=== PATIENT | female | born 1980 | race American Indian/Alaskan Native ===

== ENCOUNTER 2018-06-02 10:38 | Emergency (ER) | payer MEDICAID ==
[2018-06-02 10:56] VITALS: BMI 30.6
[2018-06-02 10:58] VITALS: BP 132/85; PULSE 88; RESP 18; TEMP 99; O2SAT 96
[2018-06-02] MEDS ORDERED: Naproxen 550 mg Tab PO STA (11:21)
--- NOTE | 2018-06-02 11:23 | C.PDOC ---
History Of Present Illness 38 y/o female presents to the ER complaining of left shoulder pain which has been present for the past 5 days. Patient states that she just woke up with the pain today. She notes that she applied Icy Hot and ice to the area without relief.Denies having history of similar episodes, CP, SOB, changes in sensation , weakness and trauma. Time Seen by Provider: 06/02/18 11:11 Chief Complaint (Nursing): Upper Extremity Problem/Injury History Per: Patient History/Exam Limitations: no limitations Onset/Duration Of Symptoms: Days Current Symptoms Are (Timing): Still Present Past Medical History Reviewed: Historical Data, Nursing Documentation, Vital Signs Vital Signs: Last Vital Signs Temp 99.0 F 06/02/18 10:56 Pulse 88 06/02/18 10:56 Resp 18 06/02/18 11:50 BP 132/85 06/02/18 10:56 Pulse Ox 96 06/02/18 12:16 - Medical History PMH: No Chronic Diseases Other Surgeries: Hx of surgeries Family History: States: No Known Family Hx - Social History Hx Alcohol Use: No Hx Substance Use: No - Immunization History Hx Tetanus Toxoid Vaccination: No Hx Influenza Vaccination: No Hx Pneumococcal Vaccination: No Review Of Systems Except As Marked, All Systems Reviewed And Found Negative. Cardiovascular: Negative for: Chest Pain Respiratory: Negative for: Shortness of Breath Musculoskeletal: Positive for: Shoulder Pain (left shoulder pain) Neurological: Negative for: Weakness, Numbness Physical Exam - Physical Exam Appears: Non-toxic, No Acute Distress Skin: Normal Color, Warm, Dry Head: Atraumatic, Normacephalic Eye(s): bilateral: Normal Inspection, EOMI Nose: Normal Oral Mucosa: Moist Neck: Normal ROM, Supple Chest: Symmetrical Cardiovascular: Rhythm Regular Respiratory: Normal Breath Sounds, No Accessory Muscle Use Extremity: No Normal ROM (decreased ROM in left shoulder secondary to pain), Tenderness (tenderness to anterior left shoulder), Capillary Refill (<2 sec) Extremity: Bilateral: Normal Color And Temperature Pulses: Left Radial: Normal, Right Radial: Normal Neurological/Psych: Oriented x3, Normal Speech, Normal Motor, Normal Sensation ED Course And Treatment O2 Sat by Pulse Oximetry: 96 (RA) Pulse Ox Interpretation: Normal - Other Rad X-Ray- Left Shoulder X-Ray: Viewed By Me, Read By Radiologist Interpretation: PROCEDURE: Radiographs of the Left Shoulder. HISTORY: pain. COMPARISON: None available. FINDINGS: BONES: No acute displaced fracture. The distal clavicle and underlying ribs appear intact. JOINTS: No acute dislocation. Large calcifications consistent with calcific tendinitis. SOFT TISSUES: Soft tissues appear unremarkable. No evidence of radiopaque foreign body. IMPRESSION: Evidence of calcific tendinitis. No acute displaced fracture or dislocation evident. If symptoms persist or if there is continued clinical concern, x-ray follow-up in 7-10 days should be considered. Progress Note: Patient treated with Naproxen PO.X- Ray- left shoulder shows calcific tendinitis. Patient has been discharged and instructed to follow up with orthopedist in 1-2 days. Disposition - Disposition Disposition: HOME/ ROUTINE Disposition Time: 11:22 Condition: STABLE Additional Instructions: Rest and ice the area. Follow up with the bone doctor in 1-2 days. 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 - Scribe Statement The provider has reviewed the documentation as recorded by the Enrrique Mckeon Provider Attestation All medical record entries made by the Enrrique were at my direction and personally dictated by me. I have reviewed the chart and agree that the record accurately reflects my personal performance of the history, physical exam, medical decision making, and the department course for this patient. I have also personally directed, reviewed, and agree with the discharge instructions and disposition.
[2018-06-02] MEDS ORDERED: Naproxen 550 mg Tab PO ONE (11:31)
--- NOTE | 2018-06-02 11:44 | RAD ---
PROCEDURE: Radiographs of the Left Shoulder HISTORY: pain COMPARISON: None available. FINDINGS: BONES: No acute displaced fracture. The distal clavicle and underlying ribs appear intact. JOINTS: No acute dislocation. Large calcifications consistent with calcific tendinitis. SOFT TISSUES: Soft tissues appear unremarkable. No evidence of radiopaque foreign body. IMPRESSION: Evidence of calcific tendinitis. No acute displaced fracture or dislocation evident. If symptoms persist or if there is continued clinical concern, x-ray follow-up in 7-10 days should be considered.
== END 2018-06-02 11:51 | disposition home or self-care (01) ==
LOC: C.ER 10:38
DX: M75.32 Calcific tendinitis of left shoulder (principal)